=== PATIENT | male | born 1970 | race African-American/Black ===

== ENCOUNTER 2023-04-02 14:29 | Inpatient (IN) | payer OTHER ==
[2023-04-02 15:41] VITALS: BMI 23.5
[2023-04-02] MEDS ORDERED: NALOXONE HCL (KLOXXADO) 8 MG SPRAY NS PRN (17:19)
[2023-04-02] MEDS ORDERED: IBUPROFEN 600 MG TABLET (FP) PO PRN (17:19)
[2023-04-02] MEDS ORDERED: BISMUTH SUBSALICYLATE 524 MG/30 ML PO PRN (17:19)
[2023-04-02] MEDS ORDERED: ONDANSETRON *ODT* 4 MG TABLET SL PRN (17:19)
[2023-04-02] MEDS ORDERED: MAGNESIUM HYDROX 2400MG/30ML ORAL SUSPENSION 30 ML CUP PO PRN (17:19)
[2023-04-02] MEDS ORDERED: MAG HYDROX/AL HYDROX/SIMETH 30 ML UNIT-DOSE CUP PO PRN (17:19)
[2023-04-02] MEDS ORDERED: POLYETHYLENE GLYCOL (HEALTHYLAX) 3350 17 GM PACKET PO PRN (17:19)
[2023-04-02] MEDS ORDERED: NALOXONE HCL 0.4 MG/ML VIAL IM PRN (17:19)
[2023-04-02] MEDS ORDERED: DICYCLOMINE HCL 10 MG CAPSULE PO PRN (17:19)
[2023-04-02] MEDS ORDERED: hydrOXYzine PAMOATE 25 MG CAPSULE (FP) PO PRN (17:19)
[2023-04-02] MEDS ORDERED: ACETAMINOPHEN 325 MG TABLET (FP) PO PRN (17:19)
[2023-04-02] MEDS ORDERED: LOPERAMIDE HCL 2 MG CAPSULE PO PRN (17:19)
[2023-04-02] MEDS ORDERED: guaiFENesin 600 MG TABLET.ER (FP) PO PRN (17:19)
[2023-04-02] MEDS ORDERED: BENZOCAINE/MENTHOL (CHLORASEPTIC ) LOZENGE MM PRN (17:19)
[2023-04-02] MEDS ORDERED: IBUPROFEN 400 MG TABLET (FP) PO PRN (17:19)
[2023-04-02] MEDS ORDERED: BENZONATATE 200 MG CAPSULE PO PRN (17:19)
[2023-04-02] MEDS: MELATONIN 5 MG TABLETS PO SCH (22:57)
[2023-04-02] MEDS: THIAMINE HCL 100 MG TABLET (FP) PO SCH (22:57)
[2023-04-03] MEDS ORDERED: diazePAM 5 MG TABLET PO PRN (10:02)
[2023-04-03 10:06] LABS: HEMATOCRIT 41.3 % (35.4-49); HEMOGLOBIN 13.5 GM/dL (11.7-16.9); MCHC 32.8 g/dl (32.0-35.9); MEAN CELL VOLUME 88.2 fl (80-96); MEAN PLT VOLUME 9.2 fl (7.5-11.1); PLATELET COUNT 180 10^3/uL (134-434); RBC 4.68 M/mm3 (4.00-5.60); RDW 15.1 % (11.9-15.9); WHITE BLOOD COUNT 5.5 K/mm3 (4.0-10.0)
[2023-04-03 10:14] LABS: POTASSIUM 4.5 mmol/L (3.5-5.1)
[2023-04-03] MEDS: PRENATAL VITAMINS W/ FOLIC ACID TABLET (FP) PO SCH (10:19)
[2023-04-03] MEDS: diazePAM 5 MG TABLET PO SCH ×4 (10:20→22:55)
[2023-04-03 10:25] LABS: ALBUMIN 3.3 g/dl (3.4-5.0); CALCIUM 8.4 mg/dL (8.5-10.1)
[2023-04-03 10:26] LABS: BLOOD UREA NITROGEN 15.5 mg/dL (7-18)
[2023-04-03 10:29] LABS: CREATININE 0.7 mg/dL (0.55-1.3)
[2023-04-03 10:31] LABS: BILIRUBIN,TOTAL 0.3 mg/dL (0.2-1); TOT PROT 6.4 g/dl (6.4-8.2)
[2023-04-03] MEDS: DARUNAVIR 800 MG/COBICISTAT 150MG TABLET PO SCH (12:10)
[2023-04-03] MEDS: DOLUTEGRAVIR SODIUM 50 MG TABLET (NON-FORMULARY) PO SCH (12:10)
[2023-04-03] MEDS: MELATONIN 5 MG TABLETS PO SCH (22:55)
[2023-04-03] MEDS: THIAMINE HCL 100 MG TABLET (FP) PO SCH (22:55)
[2023-04-04] MEDS: diazePAM 5 MG TABLET PO SCH ×4 (05:41→22:55)
[2023-04-04] MEDS: DARUNAVIR 800 MG/COBICISTAT 150MG TABLET PO SCH (07:15)
[2023-04-04] MEDS: DOLUTEGRAVIR SODIUM 50 MG TABLET (NON-FORMULARY) PO SCH (07:15)
[2023-04-04] MEDS: PRENATAL VITAMINS W/ FOLIC ACID TABLET (FP) PO SCH (10:35)
[2023-04-04] MEDS: MELATONIN 5 MG TABLETS PO SCH (22:54)
[2023-04-04] MEDS: THIAMINE HCL 100 MG TABLET (FP) PO SCH (22:54)
[2023-04-05] MEDS: diazePAM 5 MG TABLET PO SCH ×3 (05:32→22:25)
[2023-04-05] MEDS: DOLUTEGRAVIR SODIUM 50 MG TABLET (NON-FORMULARY) PO SCH (07:17)
[2023-04-05] MEDS: DARUNAVIR 800 MG/COBICISTAT 150MG TABLET PO SCH (07:17)
[2023-04-05] MEDS: PRENATAL VITAMINS W/ FOLIC ACID TABLET (FP) PO SCH (09:49)
[2023-04-05] MEDS: MELATONIN 5 MG TABLETS PO SCH (22:25)
[2023-04-05] MEDS: THIAMINE HCL 100 MG TABLET (FP) PO SCH (22:25)
[2023-04-05] MEDS: METHOCARBAMOL 500 MG TABLET PO PRN (22:27)
[2023-04-06] MEDS: diazePAM 5 MG TABLET PO SCH ×2 (05:57→17:18)
[2023-04-06] MEDS: DARUNAVIR 800 MG/COBICISTAT 150MG TABLET PO SCH (08:55)
[2023-04-06] MEDS: DOLUTEGRAVIR SODIUM 50 MG TABLET (NON-FORMULARY) PO SCH (08:55)
[2023-04-06] MEDS: PRENATAL VITAMINS W/ FOLIC ACID TABLET (FP) PO SCH (10:09)
[2023-04-06] MEDS: MELATONIN 5 MG TABLETS PO SCH (21:43)
[2023-04-06] MEDS: THIAMINE HCL 100 MG TABLET (FP) PO SCH (21:43)
[2023-04-06] MEDS: METHOCARBAMOL 500 MG TABLET PO PRN (21:44)
[2023-04-07] MEDS ORDERED: diazePAM 5 MG TABLET PO ONE (06:00)
[2023-04-07 06:13] VITALS: PULSE 80
[2023-04-07] MEDS: DOLUTEGRAVIR SODIUM 50 MG TABLET (NON-FORMULARY) PO SCH (07:58)
[2023-04-07] MEDS: DARUNAVIR 800 MG/COBICISTAT 150MG TABLET PO SCH (07:58)
[2023-04-07] MEDS: PRENATAL VITAMINS W/ FOLIC ACID TABLET (FP) PO SCH (09:15)
[2023-04-07 09:20] VITALS: BP 143/93; RESP 18; TEMP 97.5
== END 2023-04-07 09:00 | disposition other institution (70) | DRG 774 ==
LOC: YASAS 14:29 → Y3N 17:56
PROVIDERS: ADMIT Allergy & Immunology; ATTEND Surgery
PROC: HZ2ZZZZ Detoxification Services for Substance Abuse Treatment (ICD-10-PCS; principal; 2023-04-02)
DX: F10.230 Alcohol dependence with withdrawal, uncomplicated (principal); F14.20 Cocaine dependence, uncomplicated; F12.20 Cannabis dependence, uncomplicated; F17.210 Nicotine dependence, cigarettes, uncomplicated; Z21 Asymptomatic human immunodeficiency virus [HIV] infection status; H54.62 Unqualified visual loss, left eye, normal vision right eye; Z86.73 Personal history of transient ischemic attack (TIA), and cerebral infarction without residual deficits
CPT/HCPCS: 36415; 80053; 85027; 86780; 87635; 87811; 93005; 93010